=== PATIENT | female | born 1995 | race Caucasian/White ===

== ENCOUNTER 2018-07-11 14:11 | Emergency (ER) | payer OTHER ==
[2018-07-11] MEDS ORDERED: PYRIDOXINE HCL 50 MG TABLET PO ONE (14:44)
--- NOTE | 2018-07-11 14:50 | ER Document Report ---
ED Medical Screen (RME) - General Chief Complaint: Fainting Stated Complaint: VOMITTING Time Seen by Provider: 07/11/18 14:43 Mode of Arrival: Wheelchair Information source: Patient Notes: 22-year-old female presented to ED for nausea vomiting dizziness and lightheadedness. She passed out once today and almost passed out yesterday. She states she does have a history of hypoglycemia but her blood sugar is 113 at this time. She states she vomited 3 times today. She is 2 para 0. She has a history of anxiety depression and takes Zoloft and BuSpar. States only surgery is wisdom teeth. Will treat with vitamin B6 and get blood and urine and have reevaluated by another provider. I have greeted and performed a rapid initial assessment of this patient. A comprehensive ED assessment and evaluation of the patient, analysis of test results and completion of medical decision making process will be conducted by an additional ED providers. TRAVEL OUTSIDE OF THE [place] IN LAST 30 DAYS: No - Related Data Allergies/Adverse Reactions: No Known Allergies Allergy (Unverified 07/11/18 14:13) Past Medical History - Social History Frequency of alcohol use: None Drug Abuse: None Renal/ Medical History: Denies: Hx Peritoneal Dialysis Physical Exam - Vital signs Vitals: Temp Pulse Resp BP Pulse Ox 98.5 F 90 16 114/71 99 07/11/18 14:21 07/11/18 14:21 07/11/18 14:21 07/11/18 14:21 07/11/18 14:21 Course - Vital Signs Vital signs: Temp Pulse Resp BP Pulse Ox 98.5 F 90 16 114/71 99 07/11/18 14:21 07/11/18 14:21 07/11/18 14:21 07/11/18 14:21 07/11/18 14:21
[2018-07-11 15:22] LABS: ABSOLUTE EOSINOPHILS # (AUTO) 0.1 10^3/uL (0.0-0.6); ABSOLUTE LYMPHOCYTES (AUTO) 1.1 10^3/uL (0.5-4.7); ABSOLUTE MONOCYTES (AUTO) 0.4 10^3/uL (0.1-1.4); ABSOLUTE NEUT (AUTO) 8.1 10^3/uL (1.7-8.2); BASOPHILS % (AUTO) 0.3 % (0-2); EOSINOPHILS % (AUTO) 0.6 % (0-6); HEMATOCRIT 32.5 % (36.0-47.0); HEMOGLOBIN 11.5 g/dL (12.0-15.5); LYMPHOCYTES % (AUTO) 11.2 % (13-45); MEAN CORPUSCULAR HEMOGLOBIN 30.1 pg (27.0-33.4); MEAN CORPUSCULAR HGB CONC 35.5 g/dL (32.0-36.0); MEAN CORPUSCULAR VOLUME 85 fl (80-97); MONOCYTES % (AUTO) 4.2 % (3-13); PLATELET COUNT 297 10^3/uL (150-450); RED BLOOD COUNT 3.83 10^6/uL (3.72-5.28); RED CELL DISTRIBUTION WIDTH 13.9 % (11.5-14.0); SEGMENTED NEUTROPHILS % (AUTO) 83.7 % (42-78); TOTAL CELLS COUNTED % (AUTO) 100 %; WHITE BLOOD COUNT 9.7 10^3/uL (4.0-10.5)
[2018-07-11 15:37] LABS: ALANINE AMINOTRANSFERASE 24 U/L (9-52); ALBUMIN 3.4 g/dL (3.5-5.0); ALKALINE PHOSPHATASE 49 U/L (38-126); ANION GAP 7 (5-19); ASPARTATE AMINO TRANSFERASE 18 U/L (14-36); BILIRUBIN,DIRECT 0.2 mg/dL (0.0-0.4); BILIRUBIN,TOTAL 0.2 mg/dL (0.2-1.3); BLOOD UREA NITROGEN 6 mg/dL (7-20); CALCIUM 9.4 mg/dL (8.4-10.2); CARBON DIOXIDE 26 mmol/L (22-30); CHLORIDE 105 mmol/L (98-107); GLUCOSE 90 mg/dL (75-110); POTASSIUM 3.7 mmol/L (3.6-5.0); SODIUM 137.6 mmol/L (137-145); TOTAL PROTEIN 6.3 g/dL (6.3-8.2)
[2018-07-11 15:39] LABS: APPEARANCE,URINE CLOUDY; BILIRUBIN,URINE NEGATIVE (NEGATIVE); COLOR,URINE YELLOW; GLUCOSE, URINE NEGATIVE (NEGATIVE); KETONES,URINE 20 mg/dL (NEGATIVE); LEUKOCYTE ESTERASE,URINE NEGATIVE (NEGATIVE); NITRITE,URINE NEGATIVE (NEGATIVE); PROTEIN,URINE NEGATIVE (NEGATIVE); URINE SPECIFIC GRAVITY 1.014; UROBILINOGEN,URINE NEGATIVE mg/dL (<2.0)
--- NOTE | 2018-07-11 16:22 | ER Document Report ---
ED General - General Chief Complaint: Fainting Stated Complaint: VOMITTING Time Seen by Provider: 07/11/18 14:43 Mode of Arrival: Wheelchair Information source: Patient Notes: Patient is an otherwise healthy 22-year-old female who presents emergency department chief complaint of nausea, vomiting and diarrhea. Patient reports that she had an episode of syncope. She states she has had a history of syncope in the past, states she passes out usually once per year. Patient states occasionally this is associated with hypoglycemia. On arrival patient's blood glucose was 119. Patient denies falling or striking her head, states that she was able to guide herself down to the ground. Patient is 19 weeks . Patient denies any abdominal pain, cramping, vaginal bleeding, abnormal dis charge or leakage of fluids. Patient is seen at [facility] due to a history of Marfan's syndrome. TRAVEL OUTSIDE OF THE [place] IN LAST 30 DAYS: No - Related Data Allergies/Adverse Reactions: No Known Allergies Allergy (Unverified 07/11/18 14:13) Past Medical History - General Information source: Patient - Social History Smoking Status: Never Smoker Frequency of alcohol use: None Drug Abuse: None Family History: Reviewed & Not Pertinent Patient has suicidal ideation: No Patient has homicidal ideation: No - Medical History Medical History: Other - Marfans syndrome Renal/ Medical History: Denies: Hx Peritoneal Dialysis Surgical Hx: Negative - Immunizations Immunizations up to date: Yes Review of Systems - Review of Systems Constitutional: Other - Syncope. denies: Chills, Fever EENT: No symptoms reported Cardiovascular: No symptoms reported Respiratory: No symptoms reported Gastrointestinal: Diarrhea, Nausea, Vomiting. denies: Abdominal pain Genitourinary: No symptoms reported Female Genitourinary: No symptoms reported Musculoskeletal: No symptoms reported Skin: No symptoms reported Hematologic/Lymphatic: No symptoms reported Neurological/Psychological: No symptoms reported Physical Exam - Vital signs Vitals: Temp Pulse Resp BP Pulse Ox 98.5 F 90 16 114/71 99 07/11/18 14:21 07/11/18 14:21 07/11/18 14:21 07/11/18 14:21 07/11/18 14:21 - Notes Notes: PHYSICAL EXAMINATION: GENERAL: Well-appearing, well-nourished and in no acute distress. HEAD: Atraumatic, normocephalic. EYES: Pupils equal round and reactive to light, extraocular movements intact, conjunctiva are normal. ENT: Nares patent, oropharynx clear without exudates. Moist mucous membranes. NECK: Normal range of motion, supple without lymphadenopathy LUNGS: Breath sounds clear to auscultation bilaterally and equal. No wheezes rales or rhonchi. HEART: Regular rate and rhythm without murmurs ABDOMEN: Soft, nontender, nondistended abdomen. No guarding, no rebound. No masses appreciated. Female : deferred Musculoskeletal: Normal range of motion, no pitting or edema. No cyanosis. NEUROLOGICAL: Cranial nerves grossly intact. Normal speech, normal gait. Normal sensory, motor exams PSYCH: Normal mood, normal affect. SKIN: Warm, Dry, normal turgor, no rashes or lesions noted. Course - Re-evaluation Re-evalutation: Patient appears well, nontoxic in appearance, is alert, oriented with no distress noted. Patient was initially seen by provider in triage. CBC, CMP and urinalysis are unremarkable other than 20 ketones in her urine. EKG was performed which shows a sinus rhythm, rate of 71, QTc 431, normal axis and no ST segment elevations or depressions. Patient's physical examination is unremarkable, her abdomen is soft, nontender with no guarding, no rebound and no CVA tenderness. Patient reports she is feeling improved after administration of anti-nausea medication here in the emergency department. Patient reports she has only vomited one time in the last 24 hours. She does states she has had multiple episodes of diarrhea. She is likely suffering from gastroenteritis as this is going around in the community. - Vital Signs Vital signs: Temp Pulse Resp BP Pulse Ox 98.3 F 73 14 114/66 100 07/11/18 16:49 07/11/18 16:49 07/11/18 16:49 07/11/18 16:49 07/11/18 16:49 - Laboratory Result Diagrams: 07/11/18 15:03 07/11/18 15:03 Laboratory results interpreted by me: 07/11/18 07/11/18 07/11/18 15:03 15:03 15:03 Hgb 11.5 L Hct 32.5 L Seg Neutrophils % 83.7 H Lymphocytes % 11.2 L BUN 6 L Creatinine 0.45 L Albumin 3.4 L Beta HCG, Quant 24409.00 H Urine Ketones 20 H Discharge - Discharge Clinical Impression: Nausea vomiting and diarrhea Syncope Qualifiers: Syncope type: unspecified Qualified Code(s): R55 - Syncope and collapse Condition: Stable Disposition: HOME, SELF-CARE Additional Instructions: You were seen today after an episode of passing out. Your EKG here is normal. At this time, we do not feel that your episode of passing out was from any life- threatening cause. Your symptoms of nausea, vomiting and diarrhea are likely due to a viral illness and should resolve in the next several days. Continue to stay hydrated with plenty of solution such as Gatorade or Pedialyte. Please take vitamin B6 and/or Benadryl for nausea and vomiting as this is safe during . Please return if you develop severe abdominal pain, become unable to tolerate any oral fluids for 12 more hours, or any other symptoms that are concerning to you. Please call your [facility], let them know you are seen in the emergency department and had normal lab work and a normal EKG so they can guide you as to when they want you to follow-up.
[2018-07-11 16:51] VITALS: BP 114/66
--- NOTE | 2018-07-11 19:32 | EKG REPORT ---
SEVERITY:- NORMAL ECG - SINUS RHYTHM : Confirmed by: Barbra Mckeon MD 11-Jul-2018 19:31:31
== END 2018-07-11 16:51 | disposition home or self-care (01) ==
LOC: ER 14:11
DX: O21.9 Vomiting of pregnancy, unspecified (principal); O26.892 Other specified pregnancy related conditions, second trimester; R55 Syncope and collapse; R19.7 Diarrhea, unspecified; Q87.40 Marfan syndrome, unspecified; Z3A.19 19 weeks gestation of pregnancy
CPT/HCPCS: 93005; 99284; 36415; 82962; 84702; 85025; 80053; 81001; 93010; J3490